=== PATIENT | female | born 1995 | race Hispanic/Latino ===

== ENCOUNTER 2017-09-19 19:58 | Emergency (ER) | payer OTHER ==
[~2017-09-19] VITALS: Ht 144.8 cm; Wt 111.8 kg
[~2017-09-19 19:58] MED LIST: CEPHALEXIN500 MG PO; CORTISPORIN OTI10 ML AD; MACROBID100 MG PO; NO; NORCO1 TA1 PO; PRENA1 CHEW 1.41 CHW; ZITHROMAX200 MG/5 M OR
[2017-09-19 20:26] VITALS: BP 120/62
== END 2017-09-20 00:09 | disposition home or self-care (01) | DRG 951 ==
LOC: ED 19:58
DX: Z77.098 Contact with and (suspected) exposure to other hazardous, chiefly nonmedicinal, chemicals (principal)

== ENCOUNTER 2018-04-06 22:50 | Emergency (ER) | payer OTHER, MEDICAID ==
[~2018-04-06] VITALS: Ht 142.2 cm; Wt 114.8 kg
[2018-04-06] MEDS ORDERED: TYLENOL # 31 TA1 PO (23:34)
[2018-04-06 23:50] VITALS: BP 107/63
== END 2018-04-06 23:50 | disposition home or self-care (01) | DRG 103 ==
LOC: ED 22:50
DX: G44.209 Tension-type headache, unspecified, not intractable (principal); Z33.1 Pregnant state, incidental

== ENCOUNTER 2018-11-20 19:52 | Emergency (ER) | payer OTHER ==
[~2018-11-20] VITALS: Ht 142.2 cm; Wt 108.8 kg
[~2018-11-20 19:52] MED LIST changes: +TYLENOL # 31 TA1 PO
[2018-11-20] MEDS ORDERED: PREDNISONE20 MG PO (21:11)
[2018-11-20 21:14] VITALS: BP 115/60
== END 2018-11-20 21:14 | disposition home or self-care (01) | DRG 607 ==
LOC: ED 19:52
DX: R21 Rash and other nonspecific skin eruption (principal); L29.9 Pruritus, unspecified

== ENCOUNTER 2019-02-19 18:26 | Emergency (ER) | payer OTHER ==
[~2019-02-19] VITALS: Ht 142.2 cm; Wt 113.0 kg
[~2019-02-19 18:26] MED LIST changes: +PREDNISONE20 MG PO
[2019-02-19 19:09] LABS: IMMATURE GRANULOCYTES 0.3 % (0.0-5.0); MEAN CELL VOLUME 84.3 fL CALC (80.0-100.0); MEAN CORPUSCULAR HGB 27.7 pG CALC (26.0-32.0); MEAN CORPUSCULAR HGB CONC 32.8 g/L CALC (32.0-36.0); NEUT# 7.04 thou/uL (2.00-7.15); RED BLOOD COUNT 4.01 mill/uL (4.20-5.60); RED CELL DISTRI WIDTH 14.1 % (11.5-15.5)
[2019-02-19 19:12] LABS: HEMATOCRIT 33.8 % (37.0-47.0); HEMOGLOBIN 11.1 g/dl (12.0-16.0)
[2019-02-19 19:25] LABS: ANION GAP 12 (6-22 (CALC)); BUN 6 mg/dL (7-17); BUN/CREATININE RATIO 18 (12-20 (CALC)); CARBON DIOXIDE 21 mmol/l (22-30); CHLORIDE 106 mmol/l (95-108); CREATININE 0.3 mg/dL (0.5-1.0); GFR > 60 ML/MIN (>=60 (CALC)); GFR FOR AFR.AMER. > 60 ML/MIN (>=60 (CALC)); POTASSIUM 3.7 mmol/l (3.5-5.1); SODIUM 135 mmol/l (137-146)
[2019-02-19 20:14] LABS: BETA-HCG, QUANT(RESULT NUMBER) 42207 mIU/mL
[2019-02-19 20:40] VITALS: BP 120/60
== END 2019-02-19 20:37 | disposition home or self-care (01) ==
LOC: ED 18:26
PROVIDERS: Family Medicine
DX: O26.891 Other specified pregnancy related conditions, first trimester (principal); R07.89 Other chest pain; Z3A.11 11 weeks gestation of pregnancy

== ENCOUNTER 2020-12-08 11:24 | Emergency (ER) | payer MEDICAID ==
[~2020-12-08] VITALS: Ht 142.2 cm; Wt 121.0 kg
[2020-12-08] MEDS ORDERED: FLOXIN OTIC0.3 % AS (11:40)
[2020-12-08] MEDS ORDERED: CIPROFLOXACN500 MG PO (11:40)
[2020-12-08] MEDS ORDERED: ULTRAM50 M1 PO (11:41)
[2020-12-08 11:57] VITALS: BP 144/76
== END 2020-12-08 11:58 | disposition home or self-care (01) ==
LOC: ED 11:24
DX: H66.92 Otitis media, unspecified, left ear (principal); B95.61 Methicillin susceptible Staphylococcus aureus infection as the cause of diseases classified elsewhere